=== PATIENT | female | born 1995 | race Caucasian/White ===

== ENCOUNTER 2018-11-23 16:33 | Emergency (ER) | payer BC ==
[~2018-11-23] VITALS: Ht 154.9 cm; Wt 65.8 kg
[2018-11-23 16:34] VITALS: BP_SYST 139
[2018-11-23 19:30] VITALS: BP_SYST 120
== END 2018-11-23 19:30 | disposition home or self-care (01) ==
LOC: SED 16:33
DX: S16.1XXA Strain of muscle, fascia and tendon at neck level, initial encounter (principal); S60.811A Abrasion of right wrist, initial encounter; F41.9 Anxiety disorder, unspecified; F32.9 Major depressive disorder, single episode, unspecified; R03.0 Elevated blood-pressure reading, without diagnosis of hypertension; Z88.0 Allergy status to penicillin; Z91.030 Bee allergy status; V43.52XA Car driver injured in collision with other type car in traffic accident, initial encounter; Y93.89 Activity, other specified; Y92.410 Unspecified street and highway as the place of occurrence of the external cause; Y99.8 Other external cause status
CPT/HCPCS: 70450-TC; 81025; 99284

== ENCOUNTER 2022-01-25 18:39 | Emergency (ER) | payer BC ==
[~2022-01-25] VITALS: Ht 154.9 cm; Wt 72.6 kg
[2022-01-25 19:31] VITALS: BP_SYST 126
--- NOTE | 2022-01-25 19:40 | NUR ---
PT SENT FROM FOR [facility] S/P FALL, PT STATES SHE HAS HEADACHE 02/07. PT RESTING IN BED NO S/S OF DISTRESS. BED IN LOW AND LOCKED POSITION, SKIN INTACT.
--- NOTE | 2022-01-25 19:50 | NUR ---
Patient to ER bed 1 to gown for evaluation. Side rails up. Report given to ACACIA.
--- NOTE | 2022-01-25 20:25 | NUR ---
ER MD SANTIAGO AT BEDSIDE EXAMINING PATIENT.
[2022-01-25] MEDS ORDERED: SUMAtriptan SUCCINATE 6 MG/0.5 ML VIAL SUBCUT ONE (21:00)
[2022-01-25] MEDS ORDERED: METOCLOPRAMIDE HCL 10 MG/2 ML VIAL IVP ONE (21:00)
[2022-01-25] MEDS ORDERED: NACL 0.9% 1,000 ML IV ONE (21:00)
[2022-01-25 21:21] LABS: BASOPHILS % (AUTO) 0.5 % (0.0-2.0); EOSINOPHILS % (AUTO) 0.4 % (0.0-4.0); HEMATOCRIT 45.3 % (36-48); HEMOGLOBIN 15.4 g/dL (12.0-16.0); LYMPHOCYTES # (AUTO) 2.2 K/uL (1.0-5.5); MEAN CORPUSCULAR HEMOGLOBIN 31 pg (27-31); MEAN CORPUSCULAR HGB CONC 34 % (32-36); MEAN CORPUSCULAR VOLUME 90 fL (79.0-98.0); MONOCYTES # (AUTO) 0.4 K/uL (0.0-1.0); MONOCYTES % (AUTO) 4.6 % (1.7-9.3); NEUTROPHILS # (AUTO) 6.8 K/uL (1.8-7.7); NEUTROPHILS % (AUTO) 71.5 % (40.0-70.0); PLATELET COUNT (AUTO) 213 K/uL (130-430); RED BLOOD CELL COUNT(AUTO) 5.04 MIL/uL (4.2-6.2); RED CELL DISTRIBUTION WIDTH 12.8 % (9.0-15.0); WHITE BLOOD COUNT (AUTO) 9.4 K/uL (4.8-10.8)
--- NOTE | 2022-01-25 21:33 | NUR ---
EKG performed, printed, and given to for review.
[2022-01-25 21:47] LABS: CALCIUM 10.1 mg/dL (8.4-11.0); CREATININE 0.83 mg/dL (0.55-1.30); POTASSIUM 4.2 mmol/L (3.5-5.1)
[2022-01-25 21:52] LABS: ALBUMIN 4.2 g/dL (3.4-4.8); TOTAL BILIRUBIN 1.1 mg/dL (0.0-1.0)
[2022-01-25] MEDS ORDERED: KETOROLAC TROMETHAMINE 30 MG VIAL IVP ONE (22:00)
[2022-01-25] MEDS ORDERED: IBUPROFEN 600 MG TABLET PO ONE (22:00)
[2022-01-25] MEDS ORDERED: METOCLOPRAMIDE HCL 10 MG TABLET PO ONE (22:00)
[2022-01-25] MEDS ORDERED: IBUP-1969 PO (22:08)
[2022-01-25] MEDS ORDERED: METO-290 PO (22:08)
--- NOTE | 2022-01-25 23:50 | NUR ---
Patient given written and verbal discharge instructions and verbalizes understanding. ER MD KILPATRICK discussed with patient the results and treatment provided. Patient in stable condition. ID arm band removed. Rx of IBPROPHEN AND REGLAN given. Patient educated on pain management and to follow up with PMD. Pain Scale 2/10. Opportunity for questions provided and answered. Medication side effect fact sheet provided.
--- NOTE | 2022-01-25 23:52 | NUR ---
Patient given written and verbal discharge instructions and verbalizes understanding. ER MD KILPATRICK discussed with patient the results and treatment provided. Patient in stable condition. ID arm band removed. Patient skin intact. Rx of IBPROPHEN AND REGLAN given. Patient educated on pain management and to follow up with PMD. Pain Scale 2/10. Opportunity for questions provided and answered. Medication side effect fact sheet provided. PAtient walks with strong gait.
[2022-01-25 23:53] VITALS: BP_SYST 98
== END 2022-01-25 23:53 | disposition home or self-care (01) ==
LOC: SED 18:39
DX: R51.9 Headache, unspecified (principal); R55 Syncope and collapse; Z88.0 Allergy status to penicillin; Z79.899 Other long term (current) drug therapy; Z91.030 Bee allergy status
CPT/HCPCS: 36415; 70450; 76376; 80053; 81025; 85025; 93005; 99285; J8597; J2765; J3030